=== PATIENT | female | born 1995 | race Asian ===

== ENCOUNTER → 2024-11-09 14:55 | Outpatient (REF) | payer BC, SELFPAY | LOC: RAD 14:55 | PROVIDERS: ATTENDING PHYSICIAN Urology; FAMILY PHYSICIAN Internal Medicine | DX: M62.89 Other specified disorders of muscle (principal); N30.10 Interstitial cystitis (chronic) without hematuria; R31.0 Gross hematuria; R93.89 Abnormal findings on diagnostic imaging of other specified body structures | CPT/HCPCS: 74178; Q9967 ==